=== PATIENT | male | born 1980 | race African-American/Black ===

== ENCOUNTER 2018-02-10 00:44 | Emergency (ER) | payer SELFPAY ==
[~2018-02-10] VITALS: Ht 182.9 cm; Wt 176.0 kg
[2018-02-10 00:56] VITALS: BP 125/92
== END 2018-02-10 03:31 | disposition left against medical advice (07) ==
LOC: ER 00:44
DX: Z53.21 Procedure and treatment not carried out due to patient leaving prior to being seen by health care provider (principal)

== ENCOUNTER 2018-08-02 14:12 | Inpatient (IN) | payer BC ==
[~2018-08-02] VITALS: Ht 182.9 cm; Wt 193.8 kg
[2018-08-02] MEDS ORDERED: SODIUM CHLORIDE 0.9% 1,000 ML IV ONE (14:56)
[2018-08-02] MEDS ORDERED: MORPHINE SULFATE 4 MG/ML CPJ (NOT FOR IM USE) IV STA (14:58)
[2018-08-02] MEDS ORDERED: ONDANSETRON HCL 4MG/2ML INJ IV STA (14:58)
[2018-08-02] MEDS ORDERED: KETOROLAC 30MG/ML VIAL IV ONE ×2 (15:00→16:30)
[2018-08-02] MEDS ORDERED: NITROGLYCERIN OINT 1GM/INCH UDPKT TD ONE (15:00)
[2018-08-02 15:19] LABS: BASOPHILS % 0.9 % (0.0-2.0); CHLORIDE 109 mEq/L (98-107); EOSINOPHILS % 3.1 % (0.0-5.0); HEMATOCRIT. 41.8 % (42.0-52.0); HEMOGLOBIN. 13.8 g/dL (14.0-18.0); LYMPHOCYTES % 24.3 % (20.0-50.0); MEAN CORPUSCULAR VOLUME 87.9 fL (80.0-94.0); MEAN PLATELET VOLUME 7.2 fl (7.4-10.4); MONOCYTES % 10.1 % (2.0-8.0); NEUTROPHILS % 61.6 % (40.0-76.0); PLATELET 311 x1000/uL (130-400); RED BLOOD CELL COUNT 4.75 mill/uL (4.7-6.1); RED CELL DISTRIBUTION WIDTH 14.2 % (11.6-14.6)
[2018-08-02 15:25] LABS: D-DIMER 0.24 mg/L FEU (<0.50); INR 1.1; PROTHROMBIN TIME 10.9 sec (9.6-11.0)
[2018-08-02] MEDS ORDERED: ASPIRIN 325MG TABLET PO ONE (17:15)
[2018-08-02] MEDS ORDERED: ZOLPIDEM TARTRATE 5MG TABLET PO PRN (20:45)
[2018-08-02] MEDS ORDERED: IPRATROPIUM/ALBUTEROL 0.5-3(2.5)MG/3ML NEB HHN PRN (20:45)
[2018-08-02] MEDS ORDERED: ACETAMINOPHEN 325MG TABLET PO PRN (20:45)
[2018-08-02] MEDS ORDERED: ONDANSETRON HCL 4MG/2ML INJ IV PRN (20:45)
[2018-08-02 21:49] LABS: LDL CHOLESTEROL 167 mg/dL (5-100)
[2018-08-02 21:50] LABS: HDL CHOLESTEROL 44 mg/dL (40-59)
[2018-08-02 22:05] VITALS: BP 136/82
[2018-08-03] MEDS ORDERED: ALBU18HF2 IH (05:20)
[2018-08-03 08:00] VITALS: BP 131/52
[2018-08-03] MEDS ORDERED: PNEUMOCOCCAL 23-VAL P-SAC VAC 0.5 ML IM ONE (08:00)
[2018-08-03] MEDS: KETOROLAC 30MG/ML VIAL IV PRN ×2 (08:20→21:33)
[2018-08-03] MEDS ORDERED: REGADENOSON 0.4 MG/5 ML IV SCH (09:00)
[2018-08-03] MEDS: ASPIRIN 81MG TABLET PO SCH (09:29)
[2018-08-03] MEDS: ENOXAPARIN 40MG/0.4ML SYR SUBCUT SCH ×2 (10:53→21:17)
[2018-08-03 11:47] LABS: *AMPHETAMINES SCREEN URINE NEGATIVE (NEGATIVE); *BARBITURATES SCREEN URINE NEGATIVE (NEGATIVE); *BENZODIAZEPINES SCREEN URINE NEGATIVE (NEGATIVE); CANNABINOID URINE SCREEN NEGATIVE (NEGATIVE)
[2018-08-03 11:51] LABS: METHADONE URINE SCREEN NEGATIVE (NEGATIVE); OPIATES URINE SCREEN NEGATIVE (NEGATIVE)
[2018-08-03 11:54] LABS: *COCAINE SCREEN URINE NEGATIVE (NEGATIVE)
[2018-08-03 11:55] LABS: PHENCYCLIDINE URINE SCREEN NEGATIVE (NEGATIVE)
[2018-08-03 12:00] VITALS: BP 129/69
[2018-08-03 16:00] VITALS: BP 130/70
[2018-08-03 19:49] VITALS: BP 156/83
[2018-08-03] MEDS ORDERED: ATORVASTATIN CALCIUM 40MG TABLET PO SCH (21:00)
[2018-08-04 00:15] VITALS: BP 126/55
[2018-08-04] MEDS: KETOROLAC 30MG/ML VIAL IV PRN (06:24)
[2018-08-04 08:00] VITALS: BP 122/79
[2018-08-04] MEDS: ASPIRIN 81MG TABLET PO SCH (08:32)
[2018-08-04] MEDS: ENOXAPARIN 40MG/0.4ML SYR SUBCUT SCH (08:33)
[2018-08-04 12:00] VITALS: BP 115/69
[2018-08-04 15:53] VITALS: BP 115/69
== END 2018-08-04 17:10 | disposition home or self-care (01) | DRG 206 ==
LOC: ER 14:12 → 6WST 19:02 → EDBEDREQ 19:04 → ENRESERV 21:01
PROVIDERS: ADMIT Internal Medicine; ATTEND Internal Medicine
DX: M94.0 Chondrocostal junction syndrome [Tietze] (principal); Z68.43 Body mass index [BMI] 50.0-59.9, adult; E78.5 Hyperlipidemia, unspecified; E87.8 Other disorders of electrolyte and fluid balance, not elsewhere classified; G47.33 Obstructive sleep apnea (adult) (pediatric); I10 Essential (primary) hypertension; J45.909 Unspecified asthma, uncomplicated; E66.01 Morbid (severe) obesity due to excess calories
CPT/HCPCS: 36415; 71045; 78580; 80061; 80305; 83605; 83880; 84443; 84484; 85379; 93005; 93306; 93970; 96360; 96361; 99285; J1650; J1885; J2270; J2405; J7030